=== PATIENT | female | born 1945 ===

== ENCOUNTER 2022-05-10 07:30 | Inpatient (IN) | payer OTHER ==
[~2022-05-10] VITALS: Ht 149.9 cm; Wt 47.6 kg
[2022-05-10] MEDS ORDERED: TRULICITY1.5 MG/0.5 PO (10:35)
[2022-05-10] MEDS ORDERED: GLIPIZIDE XL10 MG PO (10:35)
[2022-05-10] MEDS ORDERED: METFOR PO (10:35)
[2022-05-10] MEDS ORDERED: MULTIV PO (10:36)
[2022-05-10] MEDS ORDERED: TRICOR145 MG PO (10:37)
[2022-05-10] MEDS ORDERED: AVALID PO (10:37)
[2022-05-10] MEDS ORDERED: SIMVAST PO (10:37)
[2022-05-10] MEDS ORDERED: VERELAN240 MG PO (10:38)
[2022-05-10] MEDS ORDERED: PROTONIX40 M1 PO (10:38)
[2022-05-10] MEDS ORDERED: HORIZANT300 MG PO (10:38)
[2022-05-10] MEDS ORDERED: INVOKANA100 MG PO (10:39)
[2022-05-10] MEDS ORDERED: IRBESARTAN-HCT1 EACH PO (13:48)
[2022-05-13] MEDS ORDERED: METFORMIN HCL1000 M3 (15:54)
[2022-05-13] MEDS ORDERED: GLIMEPIRIDE1 M1 (15:54)
[2022-05-13] MEDS ORDERED: ROSUVASTATIN CA20 MG (15:54)
[2022-05-13] MEDS ORDERED: SIMVASTATIN20 MG (15:55)
[2022-05-13] MEDS ORDERED: MULTI-VITAMIN1 EACH (15:55)
[2022-05-15] MEDS ORDERED: XARELTO10 MG PO (07:01)
[2022-05-15] MEDS ORDERED: INTEGRA PLUS C1 EACH PO (07:01)
[2022-05-15] MEDS ORDERED: DUI500 PO (07:01)
[2022-05-15] MEDS ORDERED: OXYC1TAB9 PO (07:01)
== END 2022-05-16 12:34 | DRG 470 ==
LOC: SURH 05-13 06:41 → O/R 05-13 06:41 → SURG 05-13 07:30 → SURH 05-13 19:29
PROVIDERS: ADMIT Orthopaedic Surgery Sports Medicine; ATTEND Orthopaedic Surgery Sports Medicine
PROC: 0SRC0J9 Replacement of Right Knee Joint with Synthetic Substitute, Cemented, Open Approach (ICD-10-PCS; principal; 2022-05-13 12:45)
DX: M17.11 Unilateral primary osteoarthritis, right knee (principal); I10 Essential (primary) hypertension; Z96.651 Presence of right artificial knee joint; E11.9 Type 2 diabetes mellitus without complications; Z20.822 Contact with and (suspected) exposure to COVID-19